=== PATIENT | female | born 1955 | race Caucasian/White ===

== ENCOUNTER → 2018-10-11 | Outpatient (CLI) | payer OTHER ==
[~2018-10-11] MED LIST: ALLO300T2 PO; ATEN25TA PO; ATOR10TA66 PO; TRIA1TAB3 PO
--- NOTE | 2018-10-11 17:41 | Diagnostic Imaging Report ---
INDICATION: Routine screening. Comparison is made with prior mammograms from 06/27/2013 and 10/13/2011. 2-D and 3-D bilateral screening mammography was performed with a Computer Aided Detection (CAD) system. FINDINGS: Scattered fibroglandular densities are identified bilaterally. Benign calcifications are identified in both breasts which appear to be slightly increased when compared with prior study, particularly on the right. No mass or malignant-appearing microcalcifications are seen. Axillae are unremarkable. IMPRESSION: No mammographic features suspicious for malignancy are identified. ACR BI-RADS Category 2: Benign findings. Result letter will be mailed to the patient. Note: At least 10% of breast cancer is not imaged by mammography. Dictated by: Dictated on workstation # [id number]
== END ==
LOC: RAD 08:57
PROVIDERS: ATTEND Nurse Practitioner Family
DX: Z12.31 Encounter for screening mammogram for malignant neoplasm of breast (principal)
CPT/HCPCS: 77067

== ENCOUNTER → 2021-02-19 | Outpatient (CLI) | payer OTHER ==
--- NOTE | 2021-02-19 13:49 | Diagnostic Imaging Report ---
Digital mammogram bilateral screening This study was compared to the prior exam of 10/11/2018. At this time, there are no current complaints. The current study was also evaluated with a Computer Aided Detection (CAD) system. FINDINGS: There are scattered fibroglandular densities in both breasts which could obscure a lesion. Overall, there does not appear to have been any significant change when compared to the prior exam. No primary or secondary sign of malignancy is noted. IMPRESSION: There is no radiographic evidence for malignancy. IMPRESSION: 1. There is no evidence for malignancy. 2. The patient should have her annual bilateral screening mammogram on schedule in January of 2022. ACR category 1 ACR BI-RADS Category 1: Negative. Result letter will be mailed to the patient. Note: At least 10% of breast cancer is not imaged by mammography. Dictated by: Dictated on workstation # [id number]
== END ==
LOC: RAD 09:45
PROVIDERS: ATTEND Nurse Practitioner Family
DX: Z12.31 Encounter for screening mammogram for malignant neoplasm of breast (principal)
CPT/HCPCS: 77063; 77067

== ENCOUNTER → 2022-02-25 | Outpatient (CLI) | payer MEDICARE, OTHER ==
[~2022-02-25] MED LIST changes: +CATHETER FLUSH 10 ML SYR IV PRN; +HOLD METFORMIN - RECEIVED CONTRAST 20 ML VIAL IV SCH; +IOHEXOL 350 MG/ML 100 ML (OMNIPAQUE 350) VIAL IV ONE; +NS 100 ML (IVPB) BAG IV ONE
--- NOTE | 2022-02-25 09:56 | Diagnostic Imaging Report ---
PROCEDURE: CT abdomen and pelvis with contrast. TECHNIQUE: Multiple contiguous axial images were obtained through the abdomen and pelvis after administration of intravenous contrast. Auto Exposure Controls were utilized during the CT exam to meet ALARA standards for radiation dose reduction. All CT scans use one or more of the following dose optimizing techniques: automated exposure control, MA and/or KvP adjustment based on patient size and exam type or iterative reconstruction. INDICATION: Left-sided abdominal pain. No prior studies are available for comparison. FINDINGS: The lung bases are clear. The liver and gallbladder are unremarkable. There is no biliary ductal dilatation. Pancreas and spleen are unremarkable. The right adrenal gland contains a 3.2 x 2.5 cm low attenuation lesion, suggestive of an adrenal adenoma. Kidneys are unremarkable. There is no hydronephrosis. Aorta is calcified but nonaneurysmal. The bowel loops are normal caliber. There is no obstruction. There is extensive diverticulosis of the descending and sigmoid colon but no evidence of acute diverticulitis. No free fluid or fluid collection. The uterus and bladder are unremarkable. There is a small fat-containing umbilical hernia. IMPRESSION: 1. Uncomplicated diverticulosis. 2. Right adrenal mass, perhaps adrenal adenoma. Continued follow-up to confirm stability would be recommended. Dictated by: Dictated on workstation # [id number]
== END ==
LOC: RAD 08:50
PROVIDERS: ATTEND Nurse Practitioner Family
DX: K57.30 Diverticulosis of large intestine without perforation or abscess without bleeding (principal); E27.8 Other specified disorders of adrenal gland
CPT/HCPCS: 74177

== ENCOUNTER → 2022-03-22 | Outpatient (CLI) | payer OTHER ==
[~2022-03-22] MED LIST changes: -CATHETER FLUSH 10 ML SYR IV PRN; -HOLD METFORMIN - RECEIVED CONTRAST 20 ML VIAL IV SCH; -IOHEXOL 350 MG/ML 100 ML (OMNIPAQUE 350) VIAL IV ONE; -NS 100 ML (IVPB) BAG IV ONE
--- NOTE | 2022-03-22 16:49 | Diagnostic Imaging Report ---
Indication: Routine screening. Comparison is made with prior mammograms 02/19/2021 and 10/11/2018. 2-D and 3-D bilateral screening mammography was performed with CAD. Scattered fibroglandular densities are identified bilaterally. Benign calcifications of both breasts are stable. The overall parenchymal pattern is stable. No mass or malignant-appearing microcalcifications are seen. Axillae are unremarkable. IMPRESSION: BI-RADS Category 2. No mammographic features suspicious for malignancy are identified. ACR BI-RADS Category 2: Benign findings. Result letter will be mailed to the patient. Note: At least 10% of breast cancer is not imaged by mammography. Dictated by: Dictated on workstation # [id number]
== END ==
LOC: RAD 09:28
PROVIDERS: ATTEND Nurse Practitioner Family
DX: Z12.31 Encounter for screening mammogram for malignant neoplasm of breast (principal)
CPT/HCPCS: 77063; 77067

== ENCOUNTER → 2022-11-25 | Outpatient (CLI) | payer OTHER ==
[~2022-11-25] MED LIST changes: +HOLD METFORMIN - RECEIVED CONTRAST 20 ML VIAL IV SCH; +IOHEXOL 350 MG/ML 100 ML (OMNIPAQUE 350) VIAL IV ONE; +NS 100 ML (IVPB) BAG IV ONE
[2022-11-25 10:03] LABS: CREATININE SERUM 0.96 MG/DL (0.60-1.30)
--- NOTE | 2022-11-25 10:51 | Diagnostic Imaging Report ---
PROCEDURE: CT abdomen and pelvis with contrast. TECHNIQUE: Multiple contiguous axial images were obtained through the abdomen and pelvis after administration of intravenous contrast. Auto Exposure Controls were utilized during the CT exam to meet ALARA standards for radiation dose reduction. All CT scans use one or more of the following dose optimizing techniques: automated exposure control, MA and/or KvP adjustment based on patient size and exam type or iterative reconstruction. INDICATION: Adrenal mass. Compared with study 02/25/2022 FINDINGS: Well-defined low attenuating right adrenal mass has areas of negative Hounsfield units and macroscopic fat and showed rapid washout on the delayed acquisitions consistent with benign adenoma. Today its maximal dimensions 3.5 x 2.3 cm previously 3.2 x 2.5 cm differences likely owing to slice localization or suspicious adrenal mass. The left adrenal is negative. Liver, spleen and pancreas unremarkable. The kidneys unobstructed with right renal parapelvic cysts chronic and benign. The atherosclerotic aorta is nonaneurysmal and patent. No ascites or bowel obstruction. There is noninflamed sigmoid diverticulosis. The uterus, adnexa and urinary bladder unremarkable. IMPRESSION: Stable benign fat-containing right adrenal adenoma, no acute or suspicious abnormality. Dictated by: Dictated on workstation # [id number]
== END ==
LOC: RAD 09:31
PROVIDERS: ATTEND Family Medicine
DX: D35.01 Benign neoplasm of right adrenal gland (principal); E27.9 Disorder of adrenal gland, unspecified
CPT/HCPCS: 36415; 74177; 82565; 84520